=== PATIENT | female | born 1980 | race Caucasian/White ===

== ENCOUNTER 2020-07-14 13:15 | Observation (INO) | payer OTHER ==
[~2020-07-14] VITALS: Ht 167.6 cm; Wt 73.9 kg
[2020-07-14 13:23] VITALS: BP 108/70
[2020-07-14 13:46] LABS: ABSOLUTE BASOPHILS 0.1 thou/uL (0.0-0.2); ABSOLUTE EOSINOPHILS 0.1 thou/uL (0.0-0.7); ABSOLUTE LYMPHOCYTES 1.9 thou/uL (0.8-5.3); ABSOLUTE MONOCYTES 0.5 thou/uL (0.0-1.2); ABSOLUTE NEUTROPHILS 7.5 thou/uL (1.6-8.1); BASOPHILS 0.6 %; EOSINOPHILS 0.9 %; HEMOGLOBIN 12.5 gm/dL (12.0-15.0); LYMPHOCYTES 18.6 %; MCH 29.2 pg (26.0-34.0); MCHC 33.7 g/dL (28.0-37.0); MCV 86.5 fL (80.0-100.0); MONOCYTES 4.8 %; MPV 8.7 fl. (7.2-11.1); NUCLEATED RBCS 0 /100WBC; PLATELET COUNT* 218 thou/uL (150-400); POLYS 75.1 %; RBC 4.28 mil/uL (4.20-5.00); RDW-CV 14.5 % (10.5-14.5)
[2020-07-14] MEDS ORDERED: ATORVASTATIN CA80 MG PO (13:55)
[2020-07-14] MEDS ORDERED: BUPROPION XL300 MG PO (13:56)
[2020-07-14] MEDS ORDERED: CARVEDILOL PO (13:57)
[2020-07-14] MEDS ORDERED: PLAVIX 75 MG TA75 M1 PO (13:57)
[2020-07-14] MEDS ORDERED: LISINOPRIL-HCT1 EAC2 PO (13:58)
[2020-07-14] MEDS ORDERED: PROTONIX40 M2 PO (13:58)
[2020-07-14] MEDS ORDERED: WELLBUTRIN SR150 MG PO (13:58)
[2020-07-14 14:01] LABS: CREATININE 0.6 mg/dL (0.6-1.3); POTASSIUM 3.7 mmol/L (3.5-5.1)
[2020-07-14 14:17] LABS: ALBUMIN 3.8 g/dL (3.4-5.0); MAGNESIUM 2.1 mg/dL (1.8-2.4); TOTAL BILIRUBIN 0.7 mg/dL (<0.1-1.0); TOTAL PROTEIN 7.9 g/dL (6.4-8.2)
[2020-07-14 15:49] LABS: APTT 25.7 Seconds (25.0-31.3); PROTIME 10.7 Seconds (9.20-11.50)
[2020-07-14 18:51] VITALS: BP 111/73
[2020-07-14 19:05] VITALS: BP 104/58
[2020-07-14 20:00] VITALS: BP 103/60
[2020-07-14 23:29] VITALS: BP 96/57
[2020-07-15] VITALS (11 sets, daily range): BP systolic 107–143; BP diastolic 60–97
--- NOTE | 2020-07-15 09:35 | EKG ---
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
--- NOTE | 2020-07-15 09:45 | EKG ---
[place] [address] ELECTROCARDIOGRAM REPORT Name: JC RAY Room: [address] M.R.#: [id number] Admission: 07/14/20 Attend Phys: Eugene Scales Discharge: Date of : 80 Date of Service: 07/15/20811 Report #: [id number] THIS REPORT FOR: //name// 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
[2020-07-15 11:25] LABS: CHOLESTEROL 190 mg/dL (<200); HDL CHOLESTEROL 32 mg/dL (>40); LDL CHOLESTEROL 135 mg/dL (<100); TC:HDL 5.9 Ratio (Not establshd); TRIGLYCERIDE 117 mg/dL (<150); VLDL 23 mg/dL (<40)
[2020-07-15 11:29] LABS: SERUM ASSESSMENT Clear
--- NOTE | 2020-07-15 16:38 | CARD ---
[address] [address] CARDIAC CATH REPORT Name: JC RAY Room: [address] Anup M.RShelly#: [id number] Admission: 07/14/20 Attend Phys: Deshawn Archibald Discharge: Date of : 80 Report #: [id number] THIS REPORT FOR: cc: FAM - No family physician/PCP FAM - No family physician/PCP Krish Baptiste MD [facility] ~ APPROVED REPORT Study performed: 07/15/2020 13:39:32 Patient Details Patient Status: In-Patient Room #: 202 The patient is a 40 year-old female Event Personnel Krish Baptiste Social Media Editor, Afua Pike RN RN, Leonel Lee RTR Scrub, Sera Zepeda RTR Monitor Procedures Performed Art Access - R radial artery Left Heart Cath w/or w/o Coronaries Hemostasis with Hemoband Indication Chest pain Risk Factors Hypercholesterolemia, Tobacco History () Previous Procedures/Diagnoses Previous PCI, Previous IL Admission/Lab Medications/Medications given during procedure Heparin Unfract., Lidocaine Subcut 8 ml, Oxygen Nasal cannula 2 l per min, 0.9% Sodium Chloride IV 75 ml per hr, Nitroglycerin IA 400 mcg, Verapamil IA 5 mg, Heparin IV 3700 units, 0.9% Sodium Chloride IV 150 ml per hr Procedure Narrative The patient was brought electively to the Cardiac Catheterization Laboratory and was prepped and draped in a sterile manner. The right wrist was infiltrated with 2% Lidocaine subcutaneous anesthesia. IV conscious sedation was used throughout procedure with appropriate monitoring and was performed in the presence of a registered nurse who was an independent trained [place] [id number] CARDIAC CATH REPORT Name: JC ARY Room: [address] Anup Leonardo#: [id number] Admission: 07/14/20 Attend Phys: Deshawn Archibald Discharge: Date of : 80 Report #: [id number] performing the procedure. A Slender Glidesheath sheath was inserted into the right radial artery. Coronary angiography was performed using coronary diagnostic catheters. The right coronary system was accessed and visualized with a Diagnostic 6 Fr 3 DRC catheter. The left coronary system was accessed and visualized with a Diagnostic 5 Fr Sahil catheter. The left ventricle was accessed and visualized with a Diagnostic 6 Fr Pigtail catheter. Left ventricular/Aortic Valve gradient assessed via catheter pullback. Left ventriculogram was performed in PEREZ projection. Closure device was deployed with a 6 Fr Vasc-Band Reg 24cm. The patient tolerated the procedure well and there were no complications associated with the procedure. There was no hematoma. Attempted catheterization of the RCA with JR4 catheter, but was unable to cannulate artery. Attempted catheterization of the left main artery with a JL4 and JL3.5 catheter but was unable to cannulate artery. Intraoperative Conscious Sedation Sedation start time: 1446 Case end Time: 1526 Fentanyl 75 mcg Versed 5 mg Fluoro Time: 11.2 minutes Dose: DAP 91108 cGycm2 1278 mGy Contrast Type and Amount: Omnipaque 120 ml Coronary Angiography The patient's coronary anatomy is right dominant. Diagnostic Cath Left Main 0% stenosis LAD Stent in mid LAD had 0% restenosis. Distal LAD had a very narrow lumen. Circumflex 0% stenosis Right Coronary 30% proximal stenosis, 40% mid stenosis, and 30% distal stenosis. RPLV 30% mid stenosis Left Ventriculography The left ventricular ejection fraction is estimated to be 40-45%. Left ventricular wall motion abnormalities are present. There is no mitral insufficiency. mild anterolateral wall hypokinesis noted. Hemodynamics The aortic pressure is 103/66 mmHg with a mean [place] 84 [place] [address] CARDIAC CATH REPORT Name: JC RAY Room: [address]#: [id number] Admission: 07/14/20 Attend Phys: Deshawn Archibald Discharge: Date of : 80 Report #: [id number] ventricular pressure is 104/6 mmHg with a mean of mmHg. The left ventricular end diastolic pressure is 8 mmHg. There was no gradient across the aortic valve upon pullback. Pullback from the left ventricle to the aorta revealed no gradient across the aortic valve. Conclusion 1. no restenosis noted of a stent in the mid LAD 2. LVEF 40-45% 3. suspect noncardiac chest pain. Recommendations Aggressive Medical Therapy <ELECTRONICALLY SIGNED> By: Krish Baptiste MD, [facility] 07/15/20 1638 1638 [id number] Baptiste MD, [facility] /INF
[2020-07-15] MEDS ORDERED: COREG6.25 MG PO (18:25)
== END 2020-07-15 18:00 | disposition admitted as inpatient to this hospital (09) ==
LOC: M.ERS 13:15 → M.2W 15:26 → M.TBA-ER 15:26 → M.2W 15:26
PROVIDERS: Nurse Practitioner Family; Registered Nurse; ADMIT Internal Medicine; ATTEND Internal Medicine
DX: I25.10 Atherosclerotic heart disease of native coronary artery without angina pectoris (principal); R07.89 Other chest pain; Z20.822 Contact with and (suspected) exposure to COVID-19; F41.9 Anxiety disorder, unspecified; I10 Essential (primary) hypertension; Z79.02 Long term (current) use of antithrombotics/antiplatelets; Z79.899 Other long term (current) drug therapy